=== PATIENT | female | born 2000 | race Caucasian/White ===

== ENCOUNTER 2021-12-26 17:26 | Emergency (ER) | payer OTHER ==
[~2021-12-26] VITALS: Ht 157.5 cm; Wt 102.1 kg
[2021-12-26 17:42] VITALS: BP 114/74
--- NOTE | 2021-12-26 18:51 | NUR ---
21/F PRESENTS TO ED WITH C/O SUBJECTIVE FEVER, BODY ACHES AND CHILLS SINCE FRIDAY. PATIENT REPORTS TAKING NYQUIL AND TYLENOL WITH MILD RELIEF, PATIENT REPORTS EPISODES OF SOB TODAY. O2 IN TRIAGE 97%, DENIES COUGH, DIZZINESS OR RECENT SICK CONTACTS.
--- NOTE | 2021-12-26 19:11 | NUR ---
Pt report given to VEENA AVILA. Transfer of care at this time.
--- NOTE | 2021-12-26 19:23 | NUR ---
RAD AT BEDSIDE.
--- NOTE | 2021-12-26 19:24 | NUR ---
21YR OLD FEMALE C/O COLD SX FOR 5 DAYS WITH SOB. SPO2 96% RA. PT IS A&OX4 . RESP EVEN AND UNLABORED. SKIN WARM DRY AND INTACT. PT ON BEDSIDE PULSE OX. HOB ELEVATED. BED AT LOWEST POSITION. NKDA NO MED HX
--- NOTE | 2021-12-26 19:24 | NUR ---
XRAY AT BEDSIDE
--- NOTE | 2021-12-26 19:40 | NUR ---
20G IV CATH PLACED IN R AC. PT UP FOR DC AFTER IV FLUIDS
[2021-12-26] MEDS ORDERED: IBUP-2213 PO (20:04)
[2021-12-26] MEDS ORDERED: PROM118S5 PO (20:04)
[2021-12-26] MEDS ORDERED: ALBU0.0912 IH (20:04)
[2021-12-26] MEDS ORDERED: BENZ-300 PO (20:04)
[2021-12-26 20:14] VITALS: BP 116/70
--- NOTE | 2021-12-26 20:14 | NUR ---
Patient discharged with v/s stable. Written and verbal after care instructions given VIRAL ILLNESS and explained. Patient alert, oriented and verbalized understanding of instructions. Ambulatory with steady gait. All questions addressed prior to discharge. ID band removed. Patient advised to follow up with PMD. Rx of ALBUTEROL, BENZOCAINE/METHOL, IBUPROFEN, PROMETHAZINE/DEXTROMETHORPHAN given.
--- NOTE | 2021-12-26 20:19 | NUR ---
The patient's care was reviewed and supervised by Leah Goodwin RN, RN.
== END 2021-12-26 20:14 | disposition home or self-care (01) ==
LOC: MED 17:26
DX: B34.9 Viral infection, unspecified (principal); Z79.899 Other long term (current) drug therapy; Z79.1 Long term (current) use of non-steroidal anti-inflammatories (NSAID)
CPT/HCPCS: 71045; 99283